=== PATIENT | male | born 1965 | race Two or more races ===

== ENCOUNTER 2022-12-31 17:35 | Emergency (ER) | payer MEDICAID ==
[~2022-12-31] VITALS: Ht 177.8 cm; Wt 104.3 kg
--- NOTE | 2022-12-31 18:30 | NUR ---
PT STABLE FOR DISHARGE, STEADY GAIT.
[2022-12-31 20:15] VITALS: BP 139/71
[2023-01-01] MEDS ORDERED: CHLO25CA22 PO ×3 (11:26→12:51)
== END 2022-12-31 18:30 | disposition home or self-care (01) ==
LOC: ER 18:04
DX: F10.129 Alcohol abuse with intoxication, unspecified (principal); Z60.2 Problems related to living alone; Y90.9 Presence of alcohol in blood, level not specified
CPT/HCPCS: 82962-TC

== ENCOUNTER 2023-01-01 08:45 | Emergency (ER) | payer MEDICAID ==
[~2023-01-01] VITALS: Ht 165.1 cm; Wt 81.6 kg
[2023-01-01] MEDS ORDERED: IV NS 0.9% 1,000 ML IV ONE ×2 (09:00→11:30)
--- NOTE | 2023-01-01 09:00 | NUR ---
WEAKNESS AND DIZZINESS, WAS HERE YESTERDAY C/O ETOH. DENIES ALCOHOL TODAY
--- NOTE | 2023-01-01 09:05 | NUR ---
ESTABLISHED IV LINE 20 G AT RIGHT FOREARM
--- NOTE | 2023-01-01 09:10 | NUR ---
BLOOD / URINE SAMPLE OBTAINED SENT TO LAB
[2023-01-01] MEDS ORDERED: ONDANSETRON HCL/PF 4 MG/2 ML VIAL ONE (09:15)
[2023-01-01] MEDS ORDERED: LORAZEPAM INJ 2 MG/ML VIAL ONE (09:15)
[2023-01-01 09:22] LABS: BASOPHILS % (AUTO) 0.4 % (0.0-2.0); EOSINOPHILS % (AUTO) 0.1 % (0.0-6.0); HEMATOCRIT 41 % (39-51); HEMOGLOBIN 13.8 g/dL (13.5-17.5); LYMPHOCYTES % (AUTO) 12.6 % (20.0-44.0); MEAN CORPUSCULAR HGB CONC 33 g/dl (31.0-36.0); MEAN CORPUSCULAR VOLUME 90 fL (80-96); MONOCYTES # (AUTO) 0.5 K/uL (0.1-1.30); MONOCYTES % (AUTO) 6.7 % (2.0-12.0); NEUTROPHILS # (AUTO) 6.1 K/uL (1.8-8.9); NEUTROPHILS % (AUTO) 80.2 % (43.0-81.0); PLATELET COUNT (AUTO) 188 K/uL (150-450); RED BLOOD CELL COUNT(AUTO) 4.58 MIL/uL (4.5-6.0); WHITE BLOOD COUNT (AUTO) 7.6 K/uL (4.3-11.0)
[2023-01-01 09:30] LABS: BILIRUBIN,URINE NEGATIVE (NEGATIVE); COLOR,URINE YELLOW (YELLOW); LEUKOCYTE ESTERASE ,URINE NEGATIVE (NEGATIVE); NITRITE, URINE NEGATIVE (NEGATIVE); PROTEIN,URINE 1+ mg/dl (NEGATIVE); UGLUCOSE NEGATIVE (NEGATIVE); UROBILINOGEN,URINE 0.2 EU/dL (0.2)
[2023-01-01] MEDS ORDERED: ONDANSETRON HCL/PF 4 MG/2 ML VIAL IV ONE (09:30)
[2023-01-01] MEDS ORDERED: LORAZEPAM INJ 2 MG/ML VIAL IV ONE (09:30)
[2023-01-01 09:35] LABS: BACTERIA,URINE Rare /HPF (None Seen); SQUAMOUS EPITHELIAL CELL,UR Few /HPF (None Seen); WBC,URINE 0-2 /HPF (0-3)
[2023-01-01 09:39] LABS: BILIRUBIN,DIRECT 0.3 mg/dL (0.0-0.2); BILIRUBIN,TOTAL 1.2 mg/dL (0.2-1.0); CALCIUM, SERUM 8.8 mg/dL (8.5-10.1); CREATININE 0.9 mg/dL (0.6-1.3); POTASSIUM 3.9 mmol/L (3.5-5.1); TOTAL PROTEIN, SERUM 7.6 g/dL (6.4-8.2)
[2023-01-01] MEDS ORDERED: CHLO25CA22 PO ×3 (11:26→12:51)
--- NOTE | 2023-01-01 13:00 | NUR ---
SERVED LUNCH AT BEDSIDE
--- NOTE | 2023-01-01 13:15 | NUR ---
PATIENTS STATED THAT HE WANTS TO GO TO REHAB FACILITY THAT HE KNOWS TO GET SOME HELP.
--- NOTE | 2023-01-01 14:13 | NUR ---
IV removed. Catheter intact and site benign. Pressure and 4x4 applied to site. No bleeding noted.
--- NOTE | 2023-01-01 14:14 | NUR ---
Patient discharged to home in stable condition. Written and verbal after care instructions given. Patient verbalizes understanding of instruction.
[2023-01-01 14:16] VITALS: BP 121/76
== END 2023-01-01 14:41 | disposition home or self-care (01) ==
LOC: ER 08:55
DX: F10.239 Alcohol dependence with withdrawal, unspecified (principal); Z79.899 Other long term (current) drug therapy; Y90.0 Blood alcohol level of less than 20 mg/100 ml
CPT/HCPCS: 99284; 96374; 96361; 96375; 93005; 85025; 80048; 80076; 81001; 36415; 82962; 80320; 80307; J2060; J2405; J7030; G0480